=== PATIENT | female | born 1985 | race Two or more races ===

== ENCOUNTER 2022-05-01 23:11 | Emergency (ER) | payer OTHER ==
[~2022-05-01] VITALS: Ht 172.7 cm; Wt 185.0 kg
[2022-05-02] MEDS ORDERED: KETOROLAC TROMETH 60MG/2ML VIAL IM ONE (00:45)
[2022-05-02 02:00] VITALS: BP 93/64
== END 2022-05-02 03:23 | disposition home or self-care (01) ==
LOC: EDBD 23:11 → ER 23:11
DX: S80.212A Abrasion, left knee, initial encounter (principal); S80.211A Abrasion, right knee, initial encounter; M79.10 Myalgia, unspecified site; R07.89 Other chest pain; V89.2XXA Person injured in unspecified motor-vehicle accident, traffic, initial encounter; Y93.89 Activity, other specified; Y92.89 Other specified places as the place of occurrence of the external cause; Y99.8 Other external cause status
CPT/HCPCS: 70450; 71045; 71120; 72125; 96372; 99284; J1885